=== PATIENT | female | born 2000 | race Hispanic/Latino ===

== ENCOUNTER 2020-01-18 17:15 | Inpatient (IN) | payer MEDICAID ==
[~2020-01-18] VITALS: Ht 162.6 cm; Wt 92.5 kg
[2020-01-18] MEDS: LACTATED RINGERS 1000ML 1,000 ML IV PRN ×2 (18:00→19:33)
[2020-01-18 18:14] LABS: APPEARANCE,URINE Clear (CLEAR); BILIRUBIN,URINE Small (NEGATIVE); COLOR,URINE Dark Yellow (YELLOW); GLUCOSE, URINE (UA) Negative (NEGATIVE); KETONES,URINE 15 mg/dL (NEGATIVE); LEUKOCYTE ESTERASE ,URINE Negative (NEGATIVE); NITRATE,URINE Negative (NEGATIVE); OCCULT BLOOD,URINE Negative (NEGATIVE); PROTEIN,URINE POS 1+ mg/dL (NEGATIVE)
[2020-01-18 18:15] LABS: HEMATOCRIT 35.4 % (36-48); MEAN CORPUSCULAR HEMOGLOBIN 23.5 pg (27.0-33.0); MEAN CORPUSCULAR HGB CONC 31.1 g/dL (32.0-36.0); MEAN CORPUSCULAR VOLUME 75.5 fL (80-100); PLATELET COUNT (AUTO) 283 K/uL (130-400); RED BLOOD CELL COUNT(AUTO) 4.69 MIL/uL (4.00-5.50); RED CELL DISTRIBUTION WIDTH 15.1 % (11.0-15.5); WHITE BLOOD COUNT (AUTO) 9.6 K/uL (4.8-10.8)
[2020-01-18 18:35] LABS: BACTERIA,URINE Few /HPF (None Seen); MUCUS,URINE Many LPF (None Seen); SQUAMOUS EPITHELIAL CELL,UR Moderate /HPF (0-2)
[2020-01-18 19:35] VITALS: BP 116/68
[2020-01-18] MEDS ORDERED: DINOPROSTONE 10 MG VAGINAL SUPP VG SCH (19:45)
[2020-01-18] MEDS ORDERED: PROM25TA7 PO (23:01)
[2020-01-18] MEDS ORDERED: DOCU-116 PO (23:01)
[2020-01-18] MEDS ORDERED: PREN-196 PO (23:01)
[2020-01-18] MEDS ORDERED: MORPHINE SULFATE 10 MG/ML 1ML SYG IM ONE (23:30)
[2020-01-18] MEDS ORDERED: ROPIVACAINE 0.2% 100ML VIAL 100 ML EP PRN (23:30)
[2020-01-18] MEDS ORDERED: NALOXONE HCL 0.4 MG/1 ML ML IV PRN (23:30)
[2020-01-18] MEDS ORDERED: LACTATED RINGERS 500 ML 500 ML IV PRN (23:30)
[2020-01-18] MEDS ORDERED: EPHEDRINE SULFATE 50 MG/ML AMPULE IVP PRN (23:30)
[2020-01-19] MEDS: LACTATED RINGERS 1000ML 1,000 ML IV PRN ×2 (04:01→23:28)
[2020-01-19] MEDS ORDERED: OXYTOCIN 10 USP UNITS/ML 20 UNIT in LACTATED RINGERS 1000ML 1,000 ML IV SCH (07:30)
[2020-01-19] MEDS ORDERED: OXYTOCIN-LR 20 UNITS/1000 ML 1,000 ML IV ONE (09:40)
[2020-01-19] MEDS ORDERED: MEPERIDINE-PF 50 MG/ML SYG ONE (13:14)
[2020-01-19] MEDS ORDERED: PROMETHAZINE HCL 25 MG/ML 1ML AMPULE IM SCH (13:15)
[2020-01-19] MEDS ORDERED: MEPERIDINE-PF 50 MG/ML SYG IVP SCH (13:15)
[2020-01-20 00:57] LABS: APPEARANCE,URINE Clear (CLEAR); BILIRUBIN,URINE Negative (NEGATIVE); COLOR,URINE Yellow (YELLOW); GLUCOSE, URINE (UA) Negative (NEGATIVE); KETONES,URINE >=80 mg/dL (NEGATIVE); LEUKOCYTE ESTERASE ,URINE Moderate (NEGATIVE); NITRATE,URINE Negative (NEGATIVE); OCCULT BLOOD,URINE Small (NEGATIVE); PH,URINE 7.5 (5.0-8.0); PROTEIN,URINE Negative (NEGATIVE)
[2020-01-20 01:06] LABS: BACTERIA,URINE Rare /HPF (None Seen); SQUAMOUS EPITHELIAL CELL,UR 0-2 /HPF (0-2)
[2020-01-20] MEDS: CEFAZOLIN SODIUM 1 GM VIAL IVP SCH ×3 (01:17→16:52)
[2020-01-20] MEDS ORDERED: OXYTOCIN-LR 20 UNITS/1000 ML 1,000 ML IV ONE (05:22)
[2020-01-20] MEDS ORDERED: METHYLERGONOVINE MALEATE 0.2 MG/1 ML ML IM PRN (07:30)
[2020-01-20] MEDS ORDERED: MISOPROSTOL 200 MCG TABLET VG PRN (07:30)
[2020-01-20 08:13] LABS: HEPATITIS Bs ANTIGEN SCREEN P Negative (Negative)
[2020-01-20] MEDS ORDERED: LIDOCAINE HCL 1% 20 ML VIAL ONE ×2 (10:18→10:36)
[2020-01-20] MEDS ORDERED: BENZOCAINE/LANOLIN/ALOE VERA 60 ML AEROSOL TP PRN (10:45)
[2020-01-20] MEDS ORDERED: DIPH,PERTUSS(ACELL),TET VAC/PF 0.5 ML VIAL IM PRN (10:45)
[2020-01-20] MEDS ORDERED: WITCH HAZEL 1 PAD TP PRN (10:45)
[2020-01-20] MEDS ORDERED: ACETAMINOPHEN-CODEINE 300/30MG TAB PO PRN (10:45)
[2020-01-20] MEDS ORDERED: MEASLES/MUMPS/RUBELLA VACCINE, LIVE 0.5 ML/VIAL SQ PRN (10:45)
[2020-01-20] MEDS ORDERED: OXYTOCIN-LR 20 UNITS/1000 ML 1,000 ML IV SCH (10:45)
[2020-01-20] MEDS ORDERED: LANOLIN 30GM OINTMENT TP PRN (10:45)
[2020-01-20] MEDS: IBUPROFEN 600 MG TABLET PO PRN ×2 (11:03→21:26)
[2020-01-20 11:48] VITALS: BP 123/77
--- NOTE | 2020-01-20 12:15 | NUR ---
pericare done, scant bleeding noted, labia swollen, applied new iced pack. RECOVERY QBL - 51 ML Addendum: 01/20/20 at 1243 by ALEX GUAN RN Amended: Links added.
[2020-01-20] MEDS ORDERED: CEFAZOLIN SODIUM 1 GM VIAL IVP SCH (14:00)
[2020-01-20 15:58] VITALS: BP 127/77
[2020-01-20 19:43] VITALS: BP 124/61
[2020-01-20] MEDS: DOCUSATE SODIUM 100 MG CAP PO SCH (21:26)
[2020-01-20 23:24] VITALS: BP 114/73
[2020-01-21] MEDS: CEFAZOLIN SODIUM 1 GM VIAL IVP SCH ×2 (01:34→09:44)
[2020-01-21 03:47] VITALS: BP 113/61
[2020-01-21 06:41] LABS: HEMATOCRIT 27.1 % (36-48); MEAN CORPUSCULAR VOLUME 77.4 fL (80-100); RED BLOOD CELL COUNT(AUTO) 3.5 MIL/uL (4.00-5.50); RED CELL DISTRIBUTION WIDTH 15.6 % (11.0-15.5); WHITE BLOOD COUNT (AUTO) 13.8 K/uL (4.8-10.8)
[2020-01-21 07:39] VITALS: BP 124/71
[2020-01-21] MEDS: DOCUSATE SODIUM 100 MG CAP PO SCH (09:44)
[2020-01-21 11:32] VITALS: BP 117/71
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
--- NOTE | 2020-01-21 14:50 | NUR ---
verbal and written discharge instructions given, informed of the follow up appointment, prescription given. informed to call the doctor for any future concerns, pt voiced understanding to all things discussed. Addendum: 01/21/20 at 1509 by ALEX GUAN RN Amended: Links added.
--- NOTE | 2020-01-21 16:15 | NUR ---
pt is dismissed in stable condition, brought to private car via wheelchair by Isela Mireles pcp Addendum: 01/21/20 at 1730 by ALEX GUAN RN Amended: Links added.
[2020-01-23] MEDS ORDERED: ONDANSETRON HCL 4 MG/2 ML VIAL ONE (21:38)
[2020-01-23] MEDS ORDERED: MORPHINE SULFATE 2 MG/ML 1ML SYG ONE (21:38)
[2020-01-23] MEDS ORDERED: SODIUM CHLORIDE 0.9% 500ML 500 ML IV ONE (21:39)
== END 2020-01-21 16:15 | disposition home or self-care (01) | DRG 560 ==
LOC: LDH 17:15 → WSH 01-20 11:40
PROC: 10E0XZZ Delivery of Products of Conception, External Approach (ICD-10-PCS; principal; 2020-01-20)
PROC: 0KQM0ZZ Repair Perineum Muscle, Open Approach (ICD-10-PCS; 2020-01-20)
PROC: 3E0R3BZ Introduction of Anesthetic Agent into Spinal Canal, Percutaneous Approach (ICD-10-PCS; 2020-01-20)
PROC: 00HU33Z Insertion of Infusion Device into Spinal Canal, Percutaneous Approach (ICD-10-PCS; 2020-01-20)
PROC: 3E033VJ Introduction of Other Hormone into Peripheral Vein, Percutaneous Approach (ICD-10-PCS; 2020-01-20)
PROC: 3E0234Z Introduction of Serum, Toxoid and Vaccine into Muscle, Percutaneous Approach (ICD-10-PCS; 2020-01-20)
PROC: 3E0134Z Introduction of Serum, Toxoid and Vaccine into Subcutaneous Tissue, Percutaneous Approach (ICD-10-PCS; 2020-01-20)
DX: O36.8130 Decreased fetal movements, third trimester, not applicable or unspecified (principal); Z37.0 Single live birth; O41.03X0 Oligohydramnios, third trimester, not applicable or unspecified; O86.4 Pyrexia of unknown origin following delivery; E66.01 Morbid (severe) obesity due to excess calories; O69.81X0 Labor and delivery complicated by cord around neck, without compression, not applicable or unspecified; O71.82 Other specified trauma to perineum and vulva; O99.214 Obesity complicating childbirth; O76 Abnormality in fetal heart rate and rhythm complicating labor and delivery; Z23 Encounter for immunization; Z3A.40 40 weeks gestation of pregnancy; O70.1 Second degree perineal laceration during delivery
CPT/HCPCS: 36415; 81001; 85027; 86592; 86850; 86900; 86901; 87088; 87340; 90707; 90715; A4314; A4606; G0378; J0690; J2175; J2210; J2270; J2590; J2795; J7120

== ENCOUNTER 2023-06-06 11:10 | Observation (INO) | payer MEDICAID ==
[~2023-06-06] VITALS: Ht 162.6 cm; Wt 97.5 kg
[~2023-06-06 11:10] MED LIST: DOCU-116 PO; PREN-196 PO; PROM25TA7 PO
[2023-06-06 11:19] VITALS: BP 136/83; PULSE 108; RESP 17
== END 2023-06-06 13:00 | disposition home or self-care (01) ==
LOC: EDH 11:10 → UNDOADMOB 11:11 → LDH 11:11
PROVIDERS: ADMIT Obstetrics & Gynecology; ATTEND Obstetrics & Gynecology
DX: O26.893 Other specified pregnancy related conditions, third trimester (principal); R07.89 Other chest pain; O36.8130 Decreased fetal movements, third trimester, not applicable or unspecified; O99.891 Other specified diseases and conditions complicating pregnancy; M54.50 Low back pain, unspecified; Z3A.34 34 weeks gestation of pregnancy
CPT/HCPCS: 99284; 76819; G0378

== ENCOUNTER 2023-06-12 20:15 | Emergency (ER) | payer MEDICAID ==
[~2023-06-12] VITALS: Ht 162.6 cm; Wt 98.4 kg
[2023-06-12 21:11] VITALS: BP 120/67; PULSE 103; RESP 20
== END 2023-06-13 00:35 | disposition home or self-care (01) ==
LOC: EDH 20:15
DX: M54.31 Sciatica, right side (principal); M54.50 Low back pain, unspecified
CPT/HCPCS: 99281; 99282

== ENCOUNTER 2023-07-07 22:28 | Inpatient (IN) | payer MEDICAID ==
[2023-07-07] MEDS ORDERED: NALOXONE HCL 0.4 MG/1 ML ML IV PRN (23:30)
[2023-07-07] MEDS ORDERED: LACTATED RINGERS 500 ML 500 ML IV PRN (23:30)
[2023-07-07] MEDS ORDERED: EPHEDRINE SULFATE 50 MG/ML AMPULE IVP PRN (23:30)
[2023-07-07] MEDS ORDERED: ROPIVACAINE 0.2% 100ML VIAL 100 ML EP SCH (23:30)
[2023-07-07] MEDS ORDERED: MEPERIDINE-PF 50 MG/ML SYG IVP PRN (23:30)
[2023-07-07] MEDS ORDERED: PROMETHAZINE HCL 25 MG/ML 1ML AMPULE IM PRN (23:30)
[2023-07-08 00:04] LABS: APPEARANCE,URINE CLEAR (CLEAR); BILIRUBIN,URINE NEGATIVE (NEGATIVE); COLOR,URINE LIGHT-YELLOW (YELLOW); GLUCOSE, URINE (UA) NEGATIVE (NEGATIVE); KETONES,URINE NEGATIVE (NEGATIVE); LEUKOCYTE ESTERASE ,URINE NEGATIVE Leu/uL (NEGATIVE); NITRATE,URINE NEGATIVE (NEGATIVE); OCCULT BLOOD,URINE NEGATIVE (NEGATIVE); PROTEIN,URINE 20 mg/dL (NEGATIVE); UROBILINOGEN,URINE 0.2 mg/dL (0.2-1.0)
[2023-07-08 00:07] LABS: ADD UA MICROSCOPIC YES
[2023-07-08 00:09] LABS: BACTERIA,URINE MOD /HPF (None Seen); MUCUS,URINE RARE LPF (None Seen); SQUAMOUS EPITHELIAL CELL,UR FEW /HPF (0-2)
[2023-07-08 00:52] LABS: HEMATOCRIT 34.6 % (36-48); MEAN CORPUSCULAR HEMOGLOBIN 24.4 pg (27.0-33.0); MEAN CORPUSCULAR HGB CONC 31.5 g/dL (32.0-36.0); MEAN CORPUSCULAR VOLUME 77.4 fL (79-99); PLATELET COUNT (AUTO) 271 K/uL (130-400); RED BLOOD CELL COUNT(AUTO) 4.47 MIL/uL (4.00-5.50); RED CELL DISTRIBUTION WIDTH 14.5 % (11.0-15.5); WHITE BLOOD COUNT (AUTO) 8.7 K/uL (4.8-10.8)
[2023-07-08 01:57] LABS: HIV 1&2 ANTIBODY Non-Reactive (Negative); HIV-1 p24 Antigen Non-Reactive (Negative)
[2023-07-08] MEDS ORDERED: MISOPROSTOL 200 MCG TABLET VG SCH (02:00)
[2023-07-08] MEDS: MISOPROSTOL 25 MCG TAB VG SCH ×2 (02:16→06:22)
[2023-07-08] MEDS: LACTATED RINGERS 1000ML 1,000 ML IV PRN ×2 (02:17→02:27)
[2023-07-08] MEDS ORDERED: OXYTOCIN-LR 30 UNITS/500ML 500 ML IV SCH ×3 (04:00→13:00)
[2023-07-08] MEDS ORDERED: LIDOCAINE HCL 1% 20 ML VIAL ONE (12:16)
[2023-07-08] MEDS ORDERED: MISOPROSTOL 200 MCG TABLET ONE (12:38)
[2023-07-08] MEDS ORDERED: BENZOCAINE/LANOLIN/ALOE VERA 60 ML AEROSOL TP PRN (13:00)
[2023-07-08] MEDS ORDERED: IBUPROFEN 600 MG TABLET PO PRN (13:00)
[2023-07-08] MEDS ORDERED: LANOLIN 30GM OINTMENT TP PRN (13:00)
[2023-07-08] MEDS ORDERED: ACETAMINOPHEN 325 MG TAB PO PRN (13:00)
[2023-07-08] MEDS ORDERED: MEASLES/MUMPS/RUBELLA VACCINE, LIVE 0.5 ML/VIAL SQ PRN (13:00)
[2023-07-08] MEDS ORDERED: DIPH,PERTUSS(ACELL),TET VAC/PF 0.5 ML VIAL IM PRN (13:00)
[2023-07-08] MEDS ORDERED: ACETAMINOPHEN WITH CODEINE 1 TAB TAB PO PRN (13:00)
[2023-07-08] MEDS ORDERED: MISOPROSTOL 200 MCG TABLET PR SCH (13:00)
[2023-07-08] MEDS ORDERED: WITCH HAZEL 1 PAD TP PRN (13:00)
[2023-07-08 14:31] LABS: RAPID PLASMA REAGIN NONREACTIVE (NONREACTIVE)
[2023-07-08 15:27] VITALS: BP 118/62; PULSE 72; RESP 17
[2023-07-08 19:42] VITALS: BP 125/78; PULSE 91; RESP 18
[2023-07-08] MEDS: DOCUSATE SODIUM 100 MG CAP PO SCH (20:16)
[2023-07-08 23:35] VITALS: BP 116/72; PULSE 77; RESP 18
[2023-07-09 04:13] VITALS: BP 112/69; PULSE 73; RESP 18
[2023-07-09 06:35] LABS: HEMATOCRIT 32.2 % (36-48); MEAN CORPUSCULAR HEMOGLOBIN 24.5 pg (27.0-33.0); MEAN CORPUSCULAR HGB CONC 31.7 g/dL (32.0-36.0); MEAN CORPUSCULAR VOLUME 77.4 fL (79-99); RED BLOOD CELL COUNT(AUTO) 4.16 MIL/uL (4.00-5.50); RED CELL DISTRIBUTION WIDTH 14.6 % (11.0-15.5)
[2023-07-09 07:18] LABS: HEPATITIS Bs ANTIGEN SCREEN P Negative (Negative)
[2023-07-09 07:47] VITALS: BP 123/72; PULSE 89; RESP 18
[2023-07-09] MEDS: DOCUSATE SODIUM 100 MG CAP PO SCH (09:26)
[2023-07-09 12:12] VITALS: BP 128/74; PULSE 88; RESP 18
[2023-07-09] MEDS ORDERED: IBUP-2071 PO (13:19)
[2023-07-09] MEDS ORDERED: IBUP-2077 PO (13:19)
== END 2023-07-09 14:30 | disposition home or self-care (01) | DRG 560 ==
LOC: LDH 22:30 → WSH 07-08 15:25
PROVIDERS: ADMIT Obstetrics & Gynecology; ATTEND Obstetrics & Gynecology
PROC: 10E0XZZ Delivery of Products of Conception, External Approach (ICD-10-PCS; principal; 2023-07-08)
PROC: 0KQM0ZZ Repair Perineum Muscle, Open Approach (ICD-10-PCS; 2023-07-08)
PROC: 10907ZC Drainage of Amniotic Fluid, Therapeutic from Products of Conception, Via Natural or Artificial Opening (ICD-10-PCS; 2023-07-08)
DX: O69.81X0 Labor and delivery complicated by cord around neck, without compression, not applicable or unspecified (principal); Z37.0 Single live birth; O70.1 Second degree perineal laceration during delivery; O99.214 Obesity complicating childbirth; Z3A.39 39 weeks gestation of pregnancy
CPT/HCPCS: 36415; 76805; 81001; 85027; 86592; 86701; 86850; 86900; 86901; 87088; 87340; 87390; 90715; A4314; G0378; J2795; J7120